=== PATIENT | female | born 1995 | race Two or more races ===

== ENCOUNTER 2021-02-09 19:38 | Inpatient (IN) ==
[2021-02-09 20:25] LABS: Bilirubin,Urine Negative (Negative); Blood, Urine Negative (Negative); Glucose,Urine (UA) Negative (Negative); Ketones,Urine Negative (Negative); Mucus,Urine Occasional /LPF (Occasional); Nitrite,Urine Negative (Negative); Protein,Urine Negative; RBC,Urine <1 /HPF (0-4); Squamous Epithelial Cell,Urine Occasional /HPF (0-10); Urine Appearance CLEAR (Clear); Urine Color Yellow (Yellow); Urine Urobilinogen < 2.0 EU/DL (0.2-1.0)
[2021-02-09] MEDS ORDERED: ONDANSETRON 4 MG/2 ML VIAL IV PRN (20:54)
[2021-02-09] MEDS ORDERED: BUTORPHANOL 2 MG/ML VIAL IV PRN (20:54)
[2021-02-09] MEDS ORDERED: MEPERIDINE 50 MG/1 ML VIAL IV PRN (20:54)
[2021-02-09 21:37] LABS: Basophils # 0.1 10*3/uL (0.0-0.2); Basophils % 0.4 % (0.0-0.8); Eosinophils # 0.1 10*3/uL (0.0-0.87); Eosinophils % 0.8 % (0.00-10.9); Hematocrit 31.9 VOL% (35.7-47.0); Hemoglobin 10.6 GM/DL (12.0-16.0); Immature Granulocytes % 1.8 %; Immature Granulocytes Absolute 0.26 #; Lymphocytes # 2.4 10*3/uL (1.4-4.0); Lymphocytes % 16.5 % (21.3-54.2); Mean Corpuscular HGB Conc 33.2 GM/DL (32-36); Mean Corpuscular Volume 87.4 FL (87-102); Mean Platelet Volume 9.7 FL (9.6-12.0); Monocytes % 9.1 % (1.7-12.7); Neutrophils % 71.4 % (38.7-73.9); Platelet Count 289 T/CUMM (130-400); Red Blood Count 3.65 MC/CUMM (3.8-5.5); Red Cell Distribution Width 13.2 % (9.3-17.3); White Blood Count 14.6 T/CUMM (4-12)
[2021-02-09 22:02] LABS: Alanine Aminotransferase 18 U/L (13-56); Albumin 2.5 G/DL (3.4-5.0); Alkaline Phosphatase 110 U/L (45-117); Aspartate Amino Transferase 16 U/L (0-37); Bilirubin,Total < 0.39 MG/DL (0.20-1.00); Blood Urea Nitrogen 10 MG/DL (7-18); Calcium 8.9 MG/DL (8.5-10.1); Carbon Dioxide 24 MMOL/L (21-32); Estimated Glom Filtration Rate 132 ML/MIN; Glucose 89 MG/DL (74-106); Osmolality,Calculated 272.7 MOS/KG (273-304); Potassium 3.5 MMOL/L (3.5-5.1); Sodium 138 MMOL/L (136-145); Total Protein 6.5 G/DL (6.4-8.2)
[2021-02-09] MEDS ORDERED: ZALEPLON 5 MG CAPSULE PO ONE (22:30)
[2021-02-10] MEDS ORDERED: OXYTOCIN/LR 20 UNIT/1,000 ML BAG IV SCH (03:00)
[2021-02-10] MEDS: LACTATED RINGERS 1,000 ML IV PRN ×2 (04:53→06:35)
[2021-02-10] MEDS ORDERED: hydrOXYzine HCL 25 MG/1 ML VIAL IM PRN (05:26)
[2021-02-10] MEDS ORDERED: PROMETHAZINE 25 MG/1 ML VIAL IM ONE (05:26)
[2021-02-10] MEDS ORDERED: ePHEDrine 50 MG/ML VIAL IV PRN (05:26)
[2021-02-10] MEDS ORDERED: CITRIC ACID/SODIUM CITRATE 30 ML UDCUP PO ONE (05:26)
[2021-02-10] MEDS ORDERED: diphenhydrAMINE 50 MG/1 ML VIAL IV PRN ×2 (05:26)
[2021-02-10] MEDS ORDERED: FAMOTIDINE 20 MG/2 ML VIAL IV ONE (05:26)
[2021-02-10] MEDS ORDERED: fentaNYL 2 MCG/ROPIV 0.2% EPID 100 ML EPIDURAL SCH (06:00)
[2021-02-10] MEDS ORDERED: NALOXONE 0.4 MG/ML VIAL IV PRN (06:00)
[2021-02-10] MEDS ORDERED: miSOPROStoL 200 MCG TABLET ONE (08:47)
[2021-02-10] MEDS ORDERED: OXYTOCIN 10 UNIT/ML VIAL ONE (08:47)
[2021-02-10] MEDS ORDERED: CARBOPROST TROMETHAMINE 250 MCG/ML AMP IM ONE (08:47)
[2021-02-10] MEDS ORDERED: METHYLERGONOVINE 0.2 MG/1 ML AMP ONE (08:47)
[2021-02-10 11:51] LABS: Cord Arterial Blood HCO3 20.5 MMOL/L
[2021-02-10 11:54] LABS: Cord Venous Blood HCO3 22.7 MMOL/L; Cord Venous Blood PCO2 47.6 MMHG; Cord Venous Blood PO2 22.8
[2021-02-10] MEDS ORDERED: IBUPROFEN 800 MG TABLET PO ONE (13:14)
[2021-02-10] MEDS ORDERED: BISACODYL 10 MG SUPP RECTAL PRN (15:17)
[2021-02-10] MEDS ORDERED: BENZOCAINE 20%/MENTHOL 0.5% SPRAY 56 GM CAN TOP PRN (15:17)
[2021-02-10] MEDS ORDERED: RHO(D) IMMUNE GLOBULIN 300 MCG SYRINGE IM ONE (15:17)
[2021-02-10] MEDS ORDERED: HYDROCORTISONE 2.5% RECTAL CREAM 30 GM TUBE TOP PRN (15:17)
[2021-02-10] MEDS ORDERED: ONDANSETRON 4 MG/2 ML VIAL IV PRN (15:17)
[2021-02-10] MEDS ORDERED: LANOLIN 50% CREAM 0.3 OZ TUBE TOP PRN (15:17)
[2021-02-10] MEDS ORDERED: OXYTOCIN/LR 20 UNIT/1,000 ML BAG IV ONE (15:17)
[2021-02-10] MEDS ORDERED: WITCH HAZEL PADS 100/JAR TOP PRN (15:17)
[2021-02-10] MEDS ORDERED: DIPH/TET/ACEL PERT BOOSTER VACCINE 0.5 ML VIAL IM ONE (15:17)
[2021-02-10] MEDS ORDERED: MEASLES/MUMPS/RUBELLA VACCINE 0.5 ML VIAL SUBCUT ONE (15:17)
[2021-02-10] MEDS ORDERED: ACETAMINOPHEN 325 MG TABLET PO PRN (15:17)
[2021-02-10] MEDS: oxyCODONE/ACETAMINOPHEN 5-325 MG TABLET PO PRN ×3 (15:23→21:10)
[2021-02-10] MEDS: IBUPROFEN 800 MG TABLET PO PRN (18:38)
[2021-02-10] MEDS: DOCUSATE SODIUM 100 MG CAPSULE PO SCH (21:11)
[2021-02-11] MEDS: IBUPROFEN 800 MG TABLET PO PRN ×3 (03:13→21:21)
[2021-02-11 06:05] LABS: Basophils # 0.1 10*3/uL (0.0-0.2); Basophils % 0.4 % (0.0-0.8); Eosinophils # 0.2 10*3/uL (0.0-0.87); Eosinophils % 1.4 % (0.00-10.9); Hematocrit 30.4 VOL% (35.7-47.0); Hemoglobin 9.8 GM/DL (12.0-16.0); Immature Granulocytes % 1.4 %; Immature Granulocytes Absolute 0.18 #; Lymphocytes # 2.8 10*3/uL (1.4-4.0); Lymphocytes % 21.1 % (21.3-54.2); Mean Corpuscular HGB Conc 32.2 GM/DL (32-36); Mean Corpuscular Volume 87.4 FL (87-102); Mean Platelet Volume 9.6 FL (9.6-12.0); Neutrophils % 65.7 % (38.7-73.9); Platelet Count 218 T/CUMM (130-400); Red Blood Count 3.48 MC/CUMM (3.8-5.5); Red Cell Distribution Width 13.4 % (9.3-17.3); White Blood Count 13.1 T/CUMM (4-12)
[2021-02-11] MEDS: oxyCODONE/ACETAMINOPHEN 5-325 MG TABLET PO PRN ×3 (07:25→21:24)
[2021-02-11] MEDS: DOCUSATE SODIUM 100 MG CAPSULE PO SCH ×2 (08:42→21:20)
[2021-02-12] MEDS: oxyCODONE/ACETAMINOPHEN 5-325 MG TABLET PO PRN (04:11)
[2021-02-12 07:56] VITALS: BP 108/67
[2021-02-12] MEDS: DOCUSATE SODIUM 100 MG CAPSULE PO SCH (08:48)
== END 2021-02-12 10:20 | disposition home or self-care (01) | DRG 560 ==
LOC: N.LDOUT 19:38 → N.LD 19:41 → N.OB 02-10 16:11
PROVIDERS: ADMIT Specialist; ATTEND Specialist